=== PATIENT | female | born 1980 | race Caucasian/White ===

== ENCOUNTER 2018-02-03 15:01 | Emergency (ER) | payer BC ==
[~2018-02-03] VITALS: Ht 162.6 cm; Wt 59.0 kg
--- NOTE | 2018-02-03 15:11 | NUR ---
A/OX4, PT IS AMBULATORY IN A STEADY GAIT TO ED BED 12. PT IS COMPLAINING OF PALPITATION X 1HR. DENIES CHEST PAIN, NO SOB. NAD. SKIN IS WARM AND NON DIAPHROETIC. RR EVEN AND UNLABORED. WILL CONTINUE TO MONITOR
--- NOTE | 2018-02-03 16:20 | NUR ---
Patient discharged to home in stable condition. Written and verbal after care instructions given. Patient verbalizes understanding of instruction.
[2018-02-03 16:46] VITALS: BP 138/79
== END 2018-02-03 16:20 | disposition home or self-care (01) ==
LOC: ER 15:03
DX: R00.2 Palpitations (principal)
CPT/HCPCS: A4606; Z7610